=== PATIENT | male | born 1965 | race Caucasian/White ===

== ENCOUNTER 2023-08-14 12:01 | Outpatient (CLI) | payer OTHER, SELFPAY ==
--- NOTE | ~2023-08-14 | PE_ITS ---
CORRECTED REPORT exam description [facility] [place] 09/03/23 This report was recreated on 09/03/23. Original report was EXAMINATION: PET PSMA skull to mid thigh DATE: 08/14/2023 15:45 INDICATION: Malignant neoplasm of prostate. TECHNIQUE: 8.719 mCi of piflufolastat F-18 was administered intravenously. Low dose computed tomography (CT) images were acquired from the base of the brain to the proximal thighs for attenuation correction and anatomic localization. Automated exposure control was employed. Dose-length product (DLP) was 1245 mGy- cm. Positron emission tomography (PET) images were acquired in the same distribution. COMPARISON: None FINDINGS: Head/neck: There are dystrophic calcifications of left ocular globe. There are no pathologically enlarged lymph nodes. Chest: There is mild emphysema. The lungs demonstrate mild atelectasis. No pleural effusion. The heart size is normal. There are coronary artery calcifications. 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 There are no pathologically enlarged lymph nodes. Abdomen/pelvis/proximal thighs: There is a 7 mm cyst in the liver. There is a gallstone in the gallbladder, which is normal in size. Calcifications in the spleen are consistent with old granulomatous disease. The pancreas, adrenal glands, and kidneys are normal. There are bilateral inguinal hernias containing fat. The prostate is mildly enlarged. There is activity in the prostate bilaterally with maximum SUV of 3.9. There is diverticulosis of the colon without evidence of diverticulitis. There are no dilated loops of bowel. There is calcified atherosclerosis of the aorta and many of the other arteries. There is a 17 x 12 mm left external iliac node with maximum SUV of 4.1. There is a 10 x 16 mm right external iliac node with maximum SUV of 3.9. There is no free intraperitoneal fluid. There is no osseous malignancy. IMPRESSION: 1. Mildly enlarged prostate with activity bilaterally with maximum SUV of 3.9, consistent with primary malignancy. 2. Mildly enlarged bilateral external iliac lymph nodes with mild activity suspicious for metastatic disease. Reviewed, dictated and finalized at location A. MTDD IMPRESSION: 1. Mildly enlarged prostate with activity bilaterally with maximum SUV of 3.9, consistent with primary malignancy. 2. Mildly enlarged bilateral external iliac lymph nodes with mild activity susp icious for metastatic disease.
== END 2023-08-14 12:02 | disposition home or self-care (01) ==
LOC: ANHIMG 12:08
PROVIDERS: PCP Urology; Visit Provider Urology
DX: C61 Malignant neoplasm of prostate (principal)
CPT/HCPCS: 78815; A9552; A9595